=== PATIENT | female | born 1985 | race Caucasian/White ===

== ENCOUNTER 2017-02-20 04:18 | Emergency (ER) | payer OTHER, MEDICAID ==
--- NOTE | 2017-02-20 04:38 | NUR ---
PT LAURA BERGER, PER OFFICER "FOUND ON PRIVATE PROPERTY, AND BROUGHT IN TO BE MEDICALLY CLEARED" PT A/O X 3, BREATHING EVEN/UNLABORED, SKIN WARM/DRY/INTACT, NO C/O PAIN PER PT "IM 8 MONTHS I JUST WANT TO MAKE SURE MY HEALTH IS OK. I USED HEROIN AND CRYSTAL METH 12 HOURS AGO"
--- NOTE | 2017-02-20 04:40 | NUR ---
EXPLAINED TO PT WILL NEED URINE SAMPLE PER PT "I DONT WANT TO GIVE YOU A SAMPLE, I DONT WANT ANY BLOOD DRAWN"
--- NOTE | 2017-02-20 05:10 | NUR ---
ER MD BEDSIDE, PER PT "I JUST WANT A CHECK UP AND MAKE SURE IM NOT SICK" PT HAS NO SPECIFIC C/O. PER ER MD OK TO D/C
--- NOTE | 2017-02-20 05:30 | NUR ---
PT GIVEN FOOD/JUICE, AMBULATED WITH STEADY GAIT, VS STEDY, EDUCATED TO FOLLOW UP WITH PCP/OB MD.
[2017-02-20 05:32] VITALS: BP 126/84
== END 2017-02-20 05:33 | disposition home or self-care (01) ==
LOC: ER 04:23
DX: Z02.89 Encounter for other administrative examinations (principal)

== ENCOUNTER 2017-07-23 10:11 | Emergency (ER) | payer OTHER, MEDICAID ==
[~2017-07-23] VITALS: Ht 160 cm; Wt 61.2 kg
[2017-07-23 10:17] VITALS: BP 121/101
[2017-07-23] MEDS ORDERED: CYCLOBENZAPRINE 10 MG TABLET ONE (10:48)
[2017-07-23] MEDS: CYCLOBENZAPRINE 10 MG TABLET PO ONE (10:50)
== END 2017-07-23 10:56 | disposition home or self-care (01) ==
LOC: ER 10:18
DX: S39.012A Strain of muscle, fascia and tendon of lower back, initial encounter (principal); S60.212A Contusion of left wrist, initial encounter; Z86.19 Personal history of other infectious and parasitic diseases; Y04.8XXA Assault by other bodily force, initial encounter; Y93.89 Activity, other specified; Y92.89 Other specified places as the place of occurrence of the external cause; Y99.8 Other external cause status
CPT/HCPCS: A4606; Z7610

== ENCOUNTER 2017-08-08 09:05 | Emergency (ER) | payer MEDICAID, OTHER ==
[~2017-08-08] VITALS: Ht 165.1 cm; Wt 54.4 kg
[2017-08-08 09:05] VITALS: BP 132/86
[2017-08-08] MEDS ORDERED: KETOROLAC TROMETHAMINE INJ 30 MG/ML VIAL ONE (09:40)
[2017-08-08] MEDS: KETOROLAC TROMETHAMINE INJ 60 MG/2 ML VIAL IM ONE (09:51)
--- NOTE | 2017-08-08 09:52 | NUR ---
OK TO BOOK
== END 2017-08-08 10:10 ==
LOC: ER 09:07
DX: M54.9 Dorsalgia, unspecified (principal); B95.8 Unspecified staphylococcus as the cause of diseases classified elsewhere; M79.7 Fibromyalgia; F10.10 Alcohol abuse, uncomplicated; Z88.0 Allergy status to penicillin; Z88.2 Allergy status to sulfonamides; Z88.6 Allergy status to analgesic agent
CPT/HCPCS: 84703-TC; A4606; A6402; A6403; J1885; Z7610

== ENCOUNTER 2017-11-14 01:17 | Emergency (ER) | payer SELFPAY ==
[~2017-11-14] VITALS: Ht 165.1 cm; Wt 54.4 kg
[2017-11-14 01:34] VITALS: BP 93/64
--- NOTE | 2017-11-14 02:20 | NUR ---
NOTED SLEEPING IN CHAIR. REFUSES TO GET UP. MD INFORMED
--- NOTE | 2017-11-14 03:10 | NUR ---
REMAINS SLEEPING IN CHAIR.
--- NOTE | 2017-11-14 04:50 | NUR ---
WHILE BEING EXAMINED BY MD, PT STATED "ALL I WANT IS TO DO IS SLEEP, I DONT WANT ANYTHING ELSE". AFTERWARDS REFUSED TO TALK ANYMORE TO MD OR ANY OTHER FURTHER EVALUATION DONE.
--- NOTE | 2017-11-14 04:59 | NUR ---
ALSO REFUSED TO SIGN AMA FORM AND STATED "LEAVE ME ALONE, I WANNA SLEEP".
== END 2017-11-14 05:02 | disposition left against medical advice (07) ==
LOC: ER 01:18
DX: B07.0 Plantar wart (principal); E16.2 Hypoglycemia, unspecified; F10.10 Alcohol abuse, uncomplicated; Y90.9 Presence of alcohol in blood, level not specified; Z88.0 Allergy status to penicillin; Z88.6 Allergy status to analgesic agent; Z88.8 Allergy status to other drugs, medicaments and biological substances
CPT/HCPCS: 99281; A4606; Z7610; Z7502

== ENCOUNTER 2017-11-14 12:39 | Emergency (ER) | payer SELFPAY ==
[~2017-11-14] VITALS: Ht 165.1 cm; Wt 54.4 kg
[2017-11-14 12:45] VITALS: BP 125/69
--- NOTE | 2017-11-14 13:39 | NUR ---
PT REFUSED TO SIGN ACI. YUNG ANTUNEZ AWARE. NAD NOTED UPON LEAVING ED.
--- NOTE | 2017-11-14 13:41 | NUR ---
APPLIED DRESSING ON LT FOOT & POST OP SHOE, PT BRENDA WELL.
== END 2017-11-14 13:42 | disposition home or self-care (01) ==
LOC: ER 12:41
DX: S90.822A Blister (nonthermal), left foot, initial encounter (principal); L03.116 Cellulitis of left lower limb; Z59.0 Homelessness; F10.10 Alcohol abuse, uncomplicated; Y90.9 Presence of alcohol in blood, level not specified; Z88.0 Allergy status to penicillin; Z88.6 Allergy status to analgesic agent; Z88.8 Allergy status to other drugs, medicaments and biological substances; W22.8XXA Striking against or struck by other objects, initial encounter; Y93.89 Activity, other specified; Y92.89 Other specified places as the place of occurrence of the external cause; Y99.8 Other external cause status
CPT/HCPCS: 99283; A4606; Z7610

== ENCOUNTER 2017-11-29 09:49 | Emergency (ER) | payer OTHER ==
[~2017-11-29] VITALS: Ht 165.1 cm; Wt 54.4 kg
[2017-11-29 09:53] VITALS: BP 116/77
== END 2017-11-29 10:40 ==
LOC: ER 09:53
DX: M54.9 Dorsalgia, unspecified (principal); Z76.5 Malingerer [conscious simulation]; I10 Essential (primary) hypertension; Z88.0 Allergy status to penicillin; Z88.6 Allergy status to analgesic agent; Z88.8 Allergy status to other drugs, medicaments and biological substances; F10.10 Alcohol abuse, uncomplicated; Y90.9 Presence of alcohol in blood, level not specified; Z98.890 Other specified postprocedural states
CPT/HCPCS: 99283; A4606; Z7610